=== PATIENT | female | born 1955 | race African-American/Black ===

== ENCOUNTER 2017-12-16 12:30 | Emergency (ER) | payer SELFPAY, BC | END 2017-12-16 19:52 | disposition left against medical advice (07) | LOC: E/R 12:30 | DX: Z53.21 Procedure and treatment not carried out due to patient leaving prior to being seen by health care provider (principal) ==

== ENCOUNTER 2018-02-08 12:44 | Inpatient (IN) | payer OTHER ==
[2018-02-08] MEDS: SOD CHLORIDE 0.9% 500 ML IV (22:00)
[2018-02-08 23:03] LABS: ADD MAN DIFF? NO
[2018-02-08 23:13] LABS: BASOPHILS % 0.7 % (0.0-2.0); EOSINOPHILS # 0.6 10^3/ul (0.0-0.5); HEMATOCRIT 28.1 % (37.0-47.0); HEMOGLOBIN 8.8 g/dl (12.0-16.0); LYMPHOCYTES # 1.4 10^3/ul (0.8-2.9); LYMPHOCYTES % 22.9 % (15.0-51.0); MEAN CORPUSCULAR HEMOGLOBIN 28.1 pg (29.0-33.0); MEAN CORPUSCULAR HGB CONC 31.3 g/dl (32.0-37.0); MEAN CORPUSCULAR VOLUME 89.8 fl (82.0-101.0); MONOCYTE # 0.6 10^3/ul (0.3-0.9); MONOCYTES % 9.7 % (0.0-11.0); NEUTROPHIL # 3.4 10^3/ul (1.6-7.5); NEUTROPHILS % 56.4 % (39.0-77.0); PLATELET COUNT 209 10^3/UL (140-415); RED BLOOD COUNT 3.13 10^6/ul (4.20-5.40); RED CELL DISTRIBUTION WIDTH 14.2 % (11.5-14.5)
[2018-02-08 23:13] LABS: WHITE BLOOD COUNT 6.1 10^3/ul (4.8-10.8)
[2018-02-08 23:26] LABS: ALANINE AMINOTRANSFERASE 21 IU/L (13-69); ALBUMIN 4.1 g/dl (3.3-4.9); ALBUMIN/GLOBULIN RATIO 1.24; ALKALINE PHOSPHATASE 114 IU/L (42-121); ANION GAP 17 (8-16); ASPARTATE AMINO TRANSFERASE 17 IU/L (15-46); BLOOD UREA NITROGEN 44 mg/dl (7-20); CALCIUM 9.4 mg/dl (8.4-10.2); CARBON DIOXIDE 20 mmol/L (21-31); CHLORIDE 112 mmol/L (97-110); CREATININE 1.72 mg/dl (0.44-1.00); GLUCOSE 83 mg/dl (70-220); LIPASE 69 U/L (23-300); POTASSIUM 3.4 mmol/L (3.5-5.1); SODIUM 146 mmol/L (135-144); TOTAL PROTEIN 7.4 g/dl (6.1-8.1)
[2018-02-08 23:28] LABS: INR 1.11; PARTIAL THROMBOPLASTIN TIME 23.4 Sec (25.0-35.0); PROTIME 14.5 Sec (11.9-14.9); PT RATIO 1.1
[2018-02-09] MEDS: ACETAMINOPHEN 325 MG TAB PO (00:18)
[2018-02-09] MEDS: SOD CHLORIDE 0.9% 1,000 ML IV ×2 (00:25→05:31)
[2018-02-09] MEDS: SOD CHLORIDE 0.9% 250 ML IV* ×3 (00:25→01:20)
[2018-02-09] MEDS ORDERED: BISACODYL (EC) 5 MG TAB PO (00:30)
[2018-02-09] MEDS ORDERED: DOCUSATE SODIUM 100 MG CAP PO (00:30)
[2018-02-09] MEDS ORDERED: NACL 0.9% 3 ML SYG IV (00:30)
[2018-02-09] MEDS ORDERED: ZOLPIDEM 5 MG TAB PO (00:30)
[2018-02-09 00:42] LABS: ADD UMIC NO; UR ASCORBIC ACID 20 mg/dL (NEGATIVE); UR BILIRUBIN (Dip) NEGATIVE (NEGATIVE); UR BLOOD (Dip) NEGATIVE (NEGATIVE); UR CLARITY CLEAR (CLEAR); UR COLOR YELLOW (YELLOW); UR GLUCOSE (Dip) NEGATIVE (NEGATIVE); UR KETONES (Dip) NEGATIVE (NEGATIVE); UR LEUKOCYTE ESTERASE (Dip) NEGATIVE Leu/ul (NEGATIVE); UR NITRITE (Dip) NEGATIVE (NEGATIVE); UR SPECIFIC GRAVITY (Dip) 1.019 (1.003-1.030); UR TOTAL PROTEIN (Dip) NEGATIVE (NEGATIVE); UR UROBILINOGEN (Dip) NEGATIVE (NEGATIVE)
[2018-02-09 01:14] LABS: HEMATOCRIT 24.4 % (37.0-47.0); HEMOGLOBIN 7.8 g/dl (12.0-16.0)
[2018-02-09] MEDS ORDERED: KETOROLAC 30 MG INJ IV (01:30)
[2018-02-09] MEDS: PANTOPRAZOLE IV 80 MG in SOD CHLORIDE 0.9% 100 ML IVPB (02:15)
[2018-02-09] MEDS: SUCRALFATE 1 GM TAB PO ×5 (02:26→21:44)
[2018-02-09] MEDS: PANTOPRAZOLE IV 80 MG in SOD CHLORIDE 0.9% 100 ML IV ×2 (02:26→11:00)
[2018-02-09] MEDS: DIAZEPAM 2 MG TAB PO ×3 (02:27→21:44)
[2018-02-09] MEDS: FUROSEMIDE 40 MG INJ IV (02:28)
[2018-02-09] MEDS ORDERED: PANTOPRAZOLE 40 MG INJ IV (06:00)
[2018-02-09 06:07] LABS: HEMATOCRIT 24.2 % (37.0-47.0); HEMOGLOBIN 7.7 g/dl (12.0-16.0)
[2018-02-09] MEDS ORDERED: hydrALAzine 20 MG INJ IV (07:30)
[2018-02-09 14:05] LABS: AHG CROSSMATCH 1 4
[2018-02-09] MEDS ORDERED: SOD FERRIC GLUC COMPLX 125 MG in SOD CHLORIDE 0.9% 100 ML IVPB (17:00)
[2018-02-09] MEDS: PANTOPRAZOLE 40 MG INJ IV (17:25)
[2018-02-09 17:55] LABS: IRON 47 ug/dl (35-150)
[2018-02-09 18:05] LABS: % IRON SATURATION 18 % SAT (22-52); TOTAL IRON BINDING CAPACITY 260 ug/dl (241-421)
[2018-02-09 18:30] LABS: FERRITIN 25.6 ng/ml (11.1-264.0)
[2018-02-09] MEDS: PROPOFOL 20 ML (18:57)
[2018-02-09] MEDS: LIDOCAINE 2% (SDV) 5 ML INJ (18:57)
[2018-02-09 21:01] LABS: HEMATOCRIT 27.2 % (37.0-47.0); HEMOGLOBIN 8.9 g/dl (12.0-16.0)
[2018-02-09] MEDS: ATORVASTATIN 10 MG TAB PO (21:44)
[2018-02-09] MEDS: PEG/ELECTROLYTES 4L BTL PO (23:09)
[2018-02-10] MEDS: PANTOPRAZOLE 40 MG INJ IV ×2 (05:33→21:04)
[2018-02-10] MEDS: SOD CHLORIDE 0.9% 1,000 ML IV (05:36)
[2018-02-10 06:05] LABS: ADD MAN DIFF? NO
[2018-02-10 06:09] LABS: WHITE BLOOD COUNT 7.1 10^3/ul (4.8-10.8)
[2018-02-10 06:09] LABS: BASOPHILS % 0.6 % (0.0-2.0); EOSINOPHILS # 0.8 10^3/ul (0.0-0.5); EOSINOPHILS % 10.9 % (0.0-7.0); HEMATOCRIT 23.1 % (37.0-47.0); HEMOGLOBIN 7.6 g/dl (12.0-16.0); LYMPHOCYTES # 1.1 10^3/ul (0.8-2.9); MEAN CORPUSCULAR HGB CONC 32.9 g/dl (32.0-37.0); MEAN CORPUSCULAR VOLUME 91.3 fl (82.0-101.0); MEAN PLATELET VOLUME 9.7 fl (7.4-10.4); MONOCYTE # 0.6 10^3/ul (0.3-0.9); MONOCYTES % 7.7 % (0.0-11.0); NEUTROPHIL # 4.6 10^3/ul (1.6-7.5); NEUTROPHILS % 64.4 % (39.0-77.0); PLATELET COUNT 180 10^3/UL (140-415); RED BLOOD COUNT 2.53 10^6/ul (4.20-5.40); RED CELL DISTRIBUTION WIDTH 14.1 % (11.5-14.5)
[2018-02-10 06:29] LABS: ALANINE AMINOTRANSFERASE 26 IU/L (13-69); ALBUMIN 3.4 g/dl (3.3-4.9); ALKALINE PHOSPHATASE 90 IU/L (42-121); ANION GAP 18 (8-16); ASPARTATE AMINO TRANSFERASE 18 IU/L (15-46); BLOOD UREA NITROGEN 42 mg/dl (7-20); CALCIUM 9.2 mg/dl (8.4-10.2); CARBON DIOXIDE 19 mmol/L (21-31); CHLORIDE 113 mmol/L (97-110); CHOL/HDL RATIO 3.1 RATIO; CHOLESTEROL 124 mg/dl (100-200); CREATININE 1.74 mg/dl (0.44-1.00); GLUCOSE 90 mg/dl (70-220); HDL CHOLESTEROL 40 mg/dl (35-98); LDL CHOLESTEROL,CALCULATED 52 mg/dl; POTASSIUM 3.8 mmol/L (3.5-5.1); SODIUM 146 mmol/L (135-144); TRIGLYCERIDES 159 mg/dl (0-149)
[2018-02-10] MEDS: SOD CHLORIDE 0.9% 250 ML IV* (08:18)
[2018-02-10] MEDS: DIAZEPAM 2 MG TAB PO ×2 (09:00→21:06)
[2018-02-10] MEDS: SUCRALFATE 1 GM TAB PO ×4 (09:00→21:04)
[2018-02-10] MEDS: ACETAMINOPHEN 325 MG TAB PO (10:38)
[2018-02-10] MEDS: FUROSEMIDE 20 MG INJ IV (15:07)
[2018-02-10] MEDS: FENTAnyl 50 MCG/ML VIAL ×2 (17:46)
[2018-02-10] MEDS: MIDAZOLAM 1 MG/ML 2 ML INJ (17:46)
[2018-02-10] MEDS ORDERED: VERAPAMIL (SR) 240 MG TAB PO (21:00)
[2018-02-10] MEDS: ATORVASTATIN 10 MG TAB PO (21:04)
[2018-02-10] MEDS: DEXTROSE 5%-0.45% NACL 1,000 ML IV (21:06)
[2018-02-10] MEDS: VERAPAMIL (SR) 240 MG TAB PO (22:18)
[2018-02-10 23:17] LABS: HEMATOCRIT 26.5 % (37.0-47.0); HEMOGLOBIN 8.9 g/dl (12.0-16.0)
[2018-02-11] MEDS: PEG/ELECTROLYTES 4L BTL PO (01:12)
[2018-02-11] MEDS: PANTOPRAZOLE 40 MG INJ IV ×2 (05:55→18:49)
[2018-02-11 06:23] LABS: ADD MAN DIFF? NO
[2018-02-11 06:29] LABS: BASOPHILS % 0.5 % (0.0-2.0); EOSINOPHILS # 0.9 10^3/ul (0.0-0.5); EOSINOPHILS % 10.7 % (0.0-7.0); HEMATOCRIT 25.7 % (37.0-47.0); HEMOGLOBIN 8.7 g/dl (12.0-16.0); LYMPHOCYTES # 1.7 10^3/ul (0.8-2.9); LYMPHOCYTES % 21.5 % (15.0-51.0); MEAN CORPUSCULAR HEMOGLOBIN 30.1 pg (29.0-33.0); MEAN CORPUSCULAR HGB CONC 33.9 g/dl (32.0-37.0); MEAN CORPUSCULAR VOLUME 88.9 fl (82.0-101.0); MEAN PLATELET VOLUME 10.1 fl (7.4-10.4); MONOCYTE # 0.6 10^3/ul (0.3-0.9); MONOCYTES % 7.8 % (0.0-11.0); NEUTROPHIL # 4.7 10^3/ul (1.6-7.5); PLATELET COUNT 190 10^3/UL (140-415); RED BLOOD COUNT 2.89 10^6/ul (4.20-5.40); RED CELL DISTRIBUTION WIDTH 14.1 % (11.5-14.5)
[2018-02-11 06:52] LABS: ANION GAP 16 (8-16); BLOOD UREA NITROGEN 30 mg/dl (7-20); CALCIUM 9.7 mg/dl (8.4-10.2); CARBON DIOXIDE 22 mmol/L (21-31); CHLORIDE 111 mmol/L (97-110); GLUCOSE 109 mg/dl (70-220); POTASSIUM 3.4 mmol/L (3.5-5.1); SODIUM 146 mmol/L (135-144)
[2018-02-11 07:08] LABS: PHOSPHORUS 3.1 mg/dl (2.5-4.9)
[2018-02-11] MEDS: VERAPAMIL (SR) 240 MG TAB PO (08:34)
[2018-02-11] MEDS: FUROSEMIDE 20 MG TAB PO (08:34)
[2018-02-11] MEDS: SUCRALFATE 1 GM TAB PO ×4 (08:34→22:14)
[2018-02-11] MEDS: DIAZEPAM 2 MG TAB PO ×2 (08:34→22:14)
[2018-02-11] MEDS: DEXTROSE 5%-0.45% NACL 1,000 ML IV ×2 (13:43→21:30)
[2018-02-11] MEDS: POTASSIUM CHLORIDE 100 ML IVPB (13:50)
[2018-02-11 15:16] LABS: HEMATOCRIT 26.4 % (37.0-47.0); HEMOGLOBIN 8.5 g/dl (12.0-16.0)
[2018-02-11 19:37] LABS: POTASSIUM 3.8 mmol/L (3.5-5.1)
[2018-02-11] MEDS: ATORVASTATIN 10 MG TAB PO (22:14)
[2018-02-11 23:11] LABS: HEMATOCRIT 24.9 % (37.0-47.0); HEMOGLOBIN 8.3 g/dl (12.0-16.0)
[2018-02-12] MEDS: ACETAMINOPHEN 325 MG TAB PO ×2 (02:58→10:29)
[2018-02-12] MEDS: DEXTROSE 5%-0.45% NACL 1,000 ML IV ×3 (05:35→18:24)
[2018-02-12] MEDS: PANTOPRAZOLE 40 MG INJ IV ×2 (05:35→18:22)
[2018-02-12 05:36] LABS: ADD MAN DIFF? NO
[2018-02-12 05:41] LABS: WHITE BLOOD COUNT 7.3 10^3/ul (4.8-10.8)
[2018-02-12 05:41] LABS: BASOPHILS % 0.4 % (0.0-2.0); EOSINOPHILS # 0.9 10^3/ul (0.0-0.5); EOSINOPHILS % 12.8 % (0.0-7.0); HEMATOCRIT 24.2 % (37.0-47.0); HEMOGLOBIN 8.1 g/dl (12.0-16.0); LYMPHOCYTES # 1.6 10^3/ul (0.8-2.9); MEAN CORPUSCULAR HEMOGLOBIN 30.1 pg (29.0-33.0); MEAN CORPUSCULAR HGB CONC 33.5 g/dl (32.0-37.0); MEAN PLATELET VOLUME 9.8 fl (7.4-10.4); MONOCYTE # 0.6 10^3/ul (0.3-0.9); MONOCYTES % 8.4 % (0.0-11.0); NEUTROPHIL # 4.1 10^3/ul (1.6-7.5); PLATELET COUNT 190 10^3/UL (140-415); RED BLOOD COUNT 2.69 10^6/ul (4.20-5.40); RED CELL DISTRIBUTION WIDTH 14.3 % (11.5-14.5)
[2018-02-12] MEDS: morphine 2 MG INJ IV (05:42)
[2018-02-12 05:56] LABS: MAGNESIUM 1.8 mg/dl (1.7-2.5)
[2018-02-12 05:56] LABS: PHOSPHORUS 3.6 mg/dl (2.5-4.9)
[2018-02-12 06:03] LABS: ANION GAP 17 (8-16); BLOOD UREA NITROGEN 17 mg/dl (7-20); CALCIUM 9.6 mg/dl (8.4-10.2); CARBON DIOXIDE 23 mmol/L (21-31); CHLORIDE 112 mmol/L (97-110); CREATININE 1.49 mg/dl (0.44-1.00); GLUCOSE 108 mg/dl (70-220); POTASSIUM 3.6 mmol/L (3.5-5.1); SODIUM 148 mmol/L (135-144)
[2018-02-12] MEDS: VERAPAMIL (SR) 240 MG TAB PO (10:22)
[2018-02-12] MEDS: SUCRALFATE 1 GM TAB PO ×4 (10:23→20:17)
[2018-02-12] MEDS: FUROSEMIDE 20 MG TAB PO (10:23)
[2018-02-12] MEDS: DIAZEPAM 2 MG TAB PO ×2 (10:24→20:17)
[2018-02-12] MEDS: PROPOFOL 60 ML (13:04)
[2018-02-12] MEDS: LIDOCAINE 2% (SDV) 5 ML INJ (13:04)
[2018-02-12] MEDS ORDERED: TOPIRAMATE 25 MG TAB PO (20:00)
[2018-02-12] MEDS: ATORVASTATIN 10 MG TAB PO (20:17)
[2018-02-12 22:36] LABS: AHG CROSSMATCH 1 2
[2018-02-13] MEDS: ZOLPIDEM 5 MG TAB PO (03:02)
[2018-02-13] MEDS: PANTOPRAZOLE 40 MG INJ IV (05:53)
[2018-02-13] MEDS: ONDANSETRON 4 MG INJ IV (09:29)
[2018-02-13] MEDS: FUROSEMIDE 20 MG TAB PO (09:29)
[2018-02-13] MEDS: DIAZEPAM 2 MG TAB PO (09:29)
[2018-02-13] MEDS: SUCRALFATE 1 GM TAB PO (09:29)
[2018-02-13] MEDS: VERAPAMIL (SR) 240 MG TAB PO (09:29)
[2018-02-13 10:00] LABS: ADD MAN DIFF? NO
[2018-02-13 10:05] LABS: WHITE BLOOD COUNT 7.4 10^3/ul (4.8-10.8)
[2018-02-13 10:05] LABS: BASOPHILS % 0.4 % (0.0-2.0); EOSINOPHILS # 1.2 10^3/ul (0.0-0.5); EOSINOPHILS % 15.5 % (0.0-7.0); HEMATOCRIT 27.8 % (37.0-47.0); HEMOGLOBIN 9.3 g/dl (12.0-16.0); LYMPHOCYTES # 1.4 10^3/ul (0.8-2.9); LYMPHOCYTES % 18.6 % (15.0-51.0); MEAN CORPUSCULAR HEMOGLOBIN 30.1 pg (29.0-33.0); MEAN CORPUSCULAR HGB CONC 33.5 g/dl (32.0-37.0); MONOCYTE # 0.6 10^3/ul (0.3-0.9); MONOCYTES % 8.6 % (0.0-11.0); NEUTROPHIL # 4.2 10^3/ul (1.6-7.5); NEUTROPHILS % 56.4 % (39.0-77.0); PLATELET COUNT 202 10^3/UL (140-415); RED BLOOD COUNT 3.09 10^6/ul (4.20-5.40); RED CELL DISTRIBUTION WIDTH 14.2 % (11.5-14.5)
[2018-02-13 10:23] LABS: ANION GAP 16 (8-16); BLOOD UREA NITROGEN 20 mg/dl (7-20); CALCIUM 9.3 mg/dl (8.4-10.2); CARBON DIOXIDE 22 mmol/L (21-31); CHLORIDE 112 mmol/L (97-110); CREATININE 1.56 mg/dl (0.44-1.00); GLUCOSE 96 mg/dl (70-220); POTASSIUM 3.9 mmol/L (3.5-5.1); SODIUM 146 mmol/L (135-144)
[2018-02-13] MEDS: HYDROCODONE/APAP (5/325) TAB PO (11:42)
== END 2018-02-13 14:35 | disposition home or self-care (01) | DRG 378 ==
LOC: E/R 12:44 → MS2 02-09 00:30
PROC: 30233N1 Transfusion of Nonautologous Red Blood Cells into Peripheral Vein, Percutaneous Approach (ICD-10-PCS; principal; 2018-02-09 18:00)
PROC: 0DB68ZX Excision of Stomach, Via Natural or Artificial Opening Endoscopic, Diagnostic (ICD-10-PCS; 2018-02-09 18:00)
PROC: 0DJD8ZZ Inspection of Lower Intestinal Tract, Via Natural or Artificial Opening Endoscopic (ICD-10-PCS; 2018-02-09 18:00)
PROC: 0W3P8ZZ Control Bleeding in Gastrointestinal Tract, Via Natural or Artificial Opening Endoscopic (ICD-10-PCS; 2018-02-09 18:00)
DX: K55.21 Angiodysplasia of colon with hemorrhage (principal); D62 Acute posthemorrhagic anemia; N18.3 Chronic kidney disease, stage 3 (moderate); E66.01 Morbid (severe) obesity due to excess calories; I12.9 Hypertensive chronic kidney disease with stage 1 through stage 4 chronic kidney disease, or unspecified chronic kidney disease; Z98.84 Bariatric surgery status; Z68.38 Body mass index [BMI] 38.0-38.9, adult; D64.89 Other specified anemias; E78.5 Hyperlipidemia, unspecified; F41.9 Anxiety disorder, unspecified; K64.4 Residual hemorrhoidal skin tags
CPT/HCPCS: 36430; 71045; 74176; 78278; 80048; 80053; 80061; 81003; 82728; 83540; 83690; 83735; 84100; 84132; 85014; 85018; 85025; 85610; 85730; 86850; 86870; 86900; 86901; 86902; 86920; 88305; 93005; J1940

== ENCOUNTER 2018-03-25 15:49 | Inpatient (IN) | payer OTHER ==
[2018-03-25] MEDS: FAMOTIDINE 20 MG INJ IV (16:49)
[2018-03-25] MEDS: SOD CHLORIDE 0.9% 1,000 ML IV ×2 (16:49→19:39)
[2018-03-25 17:15] LABS: ADD MAN DIFF? NO
[2018-03-25 17:24] LABS: WHITE BLOOD COUNT 6.3 10^3/ul (4.8-10.8)
[2018-03-25 17:24] LABS: BASOPHILS % 0.6 % (0.0-2.0); EOSINOPHILS # 0.8 10^3/ul (0.0-0.5); EOSINOPHILS % 12.6 % (0.0-7.0); HEMATOCRIT 30.3 % (37.0-47.0); HEMOGLOBIN 9.3 g/dl (12.0-16.0); LYMPHOCYTES # 0.9 10^3/ul (0.8-2.9); MEAN CORPUSCULAR HEMOGLOBIN 28.5 pg (29.0-33.0); MEAN CORPUSCULAR HGB CONC 30.7 g/dl (32.0-37.0); MEAN CORPUSCULAR VOLUME 92.9 fl (82.0-101.0); MONOCYTE # 0.5 10^3/ul (0.3-0.9); MONOCYTES % 8.6 % (0.0-11.0); NEUTROPHILS % 63.9 % (39.0-77.0); PLATELET COUNT 273 10^3/UL (140-415); RED BLOOD COUNT 3.26 10^6/ul (4.20-5.40); RED CELL DISTRIBUTION WIDTH 13.5 % (11.5-14.5)
[2018-03-25 17:39] LABS: INR 0.96; PROTIME 12.9 Sec (11.9-14.9)
[2018-03-25 17:43] LABS: ALANINE AMINOTRANSFERASE 23 IU/L (13-69); ALBUMIN/GLOBULIN RATIO 1.21; ALKALINE PHOSPHATASE 124 IU/L (42-121); ANION GAP 14 (8-16); ASPARTATE AMINO TRANSFERASE 19 IU/L (15-46); BLOOD UREA NITROGEN 22 mg/dl (7-20); CALCIUM 9.9 mg/dl (8.4-10.2); CARBON DIOXIDE 25 mmol/L (21-31); CHLORIDE 110 mmol/L (97-110); CREATININE 1.87 mg/dl (0.44-1.00); GLUCOSE 94 mg/dl (70-220); POTASSIUM 3.8 mmol/L (3.5-5.1); SODIUM 145 mmol/L (135-144); TOTAL PROTEIN 7.3 g/dl (6.1-8.1)
[2018-03-25 17:57] LABS: TROPONIN-I < 0.012 ng/ml (0.00-0.12)
[2018-03-25 18:23] LABS: HEMATOCRIT 29.1 % (37.0-47.0); HEMOGLOBIN 9.1 g/dl (12.0-16.0)
[2018-03-25] MEDS ORDERED: HYDROCODONE/APAP (5/325) TAB PO (19:00)
[2018-03-25] MEDS ORDERED: DOCUSATE SODIUM 100 MG CAP PO (19:00)
[2018-03-25] MEDS ORDERED: BISACODYL (EC) 5 MG TAB PO (19:00)
[2018-03-25] MEDS ORDERED: morphine 2 MG INJ IV (19:00)
[2018-03-25] MEDS ORDERED: NACL 0.9% 3 ML SYG IV (19:00)
[2018-03-25] MEDS ORDERED: ONDANSETRON 4 MG INJ IV (19:00)
[2018-03-25] MEDS ORDERED: ACETAMINOPHEN 325 MG TAB PO (19:00)
[2018-03-25] MEDS: TOPIRAMATE 25 MG TAB PO (21:00)
[2018-03-25] MEDS ORDERED: VERAPAMIL (SR) 240 MG TAB PO (21:00)
[2018-03-25 21:46] LABS: HEMATOCRIT 28.1 % (37.0-47.0); HEMOGLOBIN 8.8 g/dl (12.0-16.0)
[2018-03-25] MEDS: ATORVASTATIN 10 MG TAB PO (21:49)
[2018-03-25] MEDS: DIAZEPAM 2 MG TAB PO (21:49)
[2018-03-25] MEDS: traZODone 100 MG TAB PO (21:49)
[2018-03-25] MEDS: SUCRALFATE 1 GM TAB PO (21:49)
[2018-03-25] MEDS: ZOLPIDEM 5 MG TAB PO (23:28)
[2018-03-26 01:35] LABS: HEMATOCRIT 24.6 % (37.0-47.0); HEMOGLOBIN 7.9 g/dl (12.0-16.0)
[2018-03-26] MEDS: SOD CHLORIDE 0.9% IVPB (02:42)
[2018-03-26] MEDS: TRANEXAMIC ACID IVPB (02:42)
[2018-03-26] MEDS: SOD CHLORIDE 0.9% 250 ML IV* (02:51)
[2018-03-26] MEDS: SOD CHLORIDE 0.9% 1,000 ML IV ×3 (03:19→14:48)
[2018-03-26] MEDS: ACETAMINOPHEN 325 MG TAB PO ×2 (04:42→09:56)
[2018-03-26] MEDS: DIPHENHYDRAMINE 50 MG INJ IV (04:42)
[2018-03-26] MEDS: PANTOPRAZOLE 40 MG INJ IV (05:18)
[2018-03-26] MEDS: SOD CHLORIDE 0.9% 500 ML IV (05:24)
[2018-03-26 05:49] LABS: ADD MAN DIFF? NO
[2018-03-26 06:03] LABS: BASOPHILS % 0.7 % (0.0-2.0); EOSINOPHILS # 0.9 10^3/ul (0.0-0.5); EOSINOPHILS % 15.9 % (0.0-7.0); HEMATOCRIT 26.4 % (37.0-47.0); HEMOGLOBIN 8.3 g/dl (12.0-16.0); LYMPHOCYTES # 1.2 10^3/ul (0.8-2.9); LYMPHOCYTES % 20.2 % (15.0-51.0); MEAN CORPUSCULAR HEMOGLOBIN 28.6 pg (29.0-33.0); MEAN CORPUSCULAR HGB CONC 31.4 g/dl (32.0-37.0); MEAN PLATELET VOLUME 9.9 fl (7.4-10.4); MONOCYTE # 0.5 10^3/ul (0.3-0.9); MONOCYTES % 7.7 % (0.0-11.0); NEUTROPHIL # 3.2 10^3/ul (1.6-7.5); NEUTROPHILS % 55.3 % (39.0-77.0); PLATELET COUNT 247 10^3/UL (140-415); RED CELL DISTRIBUTION WIDTH 13.4 % (11.5-14.5)
[2018-03-26 06:03] LABS: WHITE BLOOD COUNT 5.9 10^3/ul (4.8-10.8)
[2018-03-26 06:16] LABS: ALANINE AMINOTRANSFERASE 15 IU/L (13-69); ALBUMIN 3.4 g/dl (3.3-4.9); ALBUMIN/GLOBULIN RATIO 1.17; ALKALINE PHOSPHATASE 103 IU/L (42-121); ANION GAP 11 (8-16); ASPARTATE AMINO TRANSFERASE 15 IU/L (15-46); BLOOD UREA NITROGEN 16 mg/dl (7-20); CALCIUM 9.6 mg/dl (8.4-10.2); CARBON DIOXIDE 25 mmol/L (21-31); CHLORIDE 113 mmol/L (97-110); GLUCOSE 96 mg/dl (70-220); POTASSIUM 3.6 mmol/L (3.5-5.1); SODIUM 145 mmol/L (135-144); TOTAL PROTEIN 6.3 g/dl (6.1-8.1)
[2018-03-26 06:18] LABS: INR 1.04; PROTIME 13.7 Sec (11.9-14.9); PT RATIO 1.1
[2018-03-26 06:19] LABS: PARTIAL THROMBOPLASTIN TIME 37.5 Sec (25.0-35.0)
[2018-03-26] MEDS: FUROSEMIDE 20 MG INJ IV (08:09)
[2018-03-26] MEDS: VERAPAMIL (SR) 240 MG TAB PO (08:10)
[2018-03-26] MEDS: SUCRALFATE 1 GM TAB PO (08:10)
[2018-03-26] MEDS: TOPIRAMATE 25 MG TAB PO (08:10)
[2018-03-26] MEDS: DIAZEPAM 2 MG TAB PO (08:12)
[2018-03-26 09:29] LABS: AHG CROSSMATCH 1 2
[2018-03-26 17:38] LABS: HEMATOCRIT 31.3 % (37.0-47.0)
== END 2018-03-26 20:35 | disposition short-term general hospital (02) | DRG 378 ==
LOC: E/R 15:49 → MS1 18:52
PROC: 30233N1 Transfusion of Nonautologous Red Blood Cells into Peripheral Vein, Percutaneous Approach (ICD-10-PCS; principal; 2018-03-26)
DX: K62.5 Hemorrhage of anus and rectum (principal); Z68.41 Body mass index [BMI] 40.0-44.9, adult; D62 Acute posthemorrhagic anemia; K55.20 Angiodysplasia of colon without hemorrhage; I12.9 Hypertensive chronic kidney disease with stage 1 through stage 4 chronic kidney disease, or unspecified chronic kidney disease; N18.3 Chronic kidney disease, stage 3 (moderate); F41.9 Anxiety disorder, unspecified; E78.5 Hyperlipidemia, unspecified; E66.01 Morbid (severe) obesity due to excess calories
CPT/HCPCS: 36415; 36430; 80053; 83735; 84484; 85014; 85018; 85025; 85610; 85730; 86850; 86870; 86900; 86901; 86902; 86920; 93005; 96374; 99285-25

== ENCOUNTER 2018-08-31 17:06 | Emergency (ER) | payer OTHER ==
[2018-08-31 20:41] LABS: ADD MAN DIFF? NO
[2018-08-31 20:52] LABS: WHITE BLOOD COUNT 5.6 10^3/ul (4.8-10.8)
[2018-08-31 20:52] LABS: BASOPHILS % 0.7 % (0.0-2.0); EOSINOPHILS # 0.7 10^3/ul (0.0-0.5); EOSINOPHILS % 12.8 % (0.0-7.0); HEMATOCRIT 32.4 % (37.0-47.0); HEMOGLOBIN 10.2 g/dl (12.0-16.0); LYMPHOCYTES # 1.8 10^3/ul (0.8-2.9); LYMPHOCYTES % 31.4 % (15.0-51.0); MEAN CORPUSCULAR HEMOGLOBIN 27.7 pg (29.0-33.0); MEAN CORPUSCULAR HGB CONC 31.5 g/dl (32.0-37.0); MEAN PLATELET VOLUME 10.8 fl (7.4-10.4); MONOCYTE # 0.4 10^3/ul (0.3-0.9); MONOCYTES % 7.3 % (0.0-11.0); NEUTROPHIL # 2.6 10^3/ul (1.6-7.5); NEUTROPHILS % 47.1 % (39.0-77.0); PLATELET COUNT 223 10^3/UL (140-415); RED BLOOD COUNT 3.68 10^6/ul (4.20-5.40); RED CELL DISTRIBUTION WIDTH 15.2 % (11.5-14.5)
[2018-08-31 20:54] LABS: POSITIVE DIFF @See below
[2018-08-31 21:09] LABS: INR 1.02; PROTIME 13.5 Sec (11.9-14.9); PT RATIO 1.1
[2018-08-31 21:10] LABS: ALANINE AMINOTRANSFERASE 20 IU/L (13-69); ALBUMIN/GLOBULIN RATIO 1.25; ALKALINE PHOSPHATASE 151 IU/L (42-121); ANION GAP 10 (8-16); ASPARTATE AMINO TRANSFERASE 25 IU/L (15-46); BILIRUBIN,INDIRECT 0.2 mg/dl (0-1.1); BILIRUBIN,TOTAL 0.2 mg/dl (0.2-1.3); BLOOD UREA NITROGEN 20 mg/dl (7-20); CALCIUM 9.6 mg/dl (8.4-10.2); CARBON DIOXIDE 22 mmol/L (21-31); CHLORIDE 112 mmol/L (97-110); GLUCOSE 89 mg/dl (70-220); PARTIAL THROMBOPLASTIN TIME 30.6 Sec (23.0-35.0); POTASSIUM 3.4 mmol/L (3.5-5.1); SODIUM 141 mmol/L (135-144); TOTAL PROTEIN 7.2 g/dl (6.1-8.1)
[2018-08-31 21:21] LABS: TROPONIN-I < 0.012 ng/ml (0.000-0.120)
[2018-08-31] MEDS: POTASSIUM CHLORIDE (SR) 20 MEQ TAB PO (22:07)
== END 2018-08-31 22:20 | disposition home or self-care (01) ==
LOC: E/R 22:20
DX: E87.6 Hypokalemia (principal); K62.5 Hemorrhage of anus and rectum; D64.9 Anemia, unspecified; I10 Essential (primary) hypertension
CPT/HCPCS: 36415; 80053; 84484; 85025; 85610; 85730; 86850; 86870; 86900; 86901; 93005; 99284-25

== ENCOUNTER 2018-11-24 18:36 | Inpatient (IN) | payer OTHER ==
[2018-11-25 01:57] LABS: ADD MAN DIFF? NO
[2018-11-25] MEDS: SOD CHLORIDE 0.9% 1,000 ML IV ×3 (02:03→13:45)
[2018-11-25 02:04] LABS: WHITE BLOOD COUNT 5.7 10^3/ul (4.8-10.8)
[2018-11-25 02:04] LABS: BASOPHILS % 0.5 % (0.0-2.0); EOSINOPHILS # 0.6 10^3/ul (0.0-0.5); HEMATOCRIT 23.3 % (37.0-47.0); HEMOGLOBIN 7.2 g/dl (12.0-16.0); LYMPHOCYTES # 1.2 10^3/ul (0.8-2.9); LYMPHOCYTES % 20.5 % (15.0-51.0); MEAN CORPUSCULAR HEMOGLOBIN 28.1 pg (29.0-33.0); MEAN CORPUSCULAR HGB CONC 30.9 g/dl (32.0-37.0); MEAN PLATELET VOLUME 9.8 fl (7.4-10.4); MONOCYTE # 0.7 10^3/ul (0.3-0.9); MONOCYTES % 11.4 % (0.0-11.0); NEUTROPHIL # 3.3 10^3/ul (1.6-7.5); NEUTROPHILS % 57.3 % (39.0-77.0); PLATELET COUNT 188 10^3/UL (140-415); RED BLOOD COUNT 2.56 10^6/ul (4.20-5.40); RED CELL DISTRIBUTION WIDTH 14.5 % (11.5-14.5); RETICULOCYTE COUNT # 0.063 X10^6 (0.020-0.110); RETICULOCYTE COUNT % 2.5 % (0.5-1.5); RETICULOCYTE RBC 2.56
[2018-11-25 02:21] LABS: ALANINE AMINOTRANSFERASE 16 IU/L (13-69); ALBUMIN 3.4 g/dl (3.3-4.9); ALBUMIN/GLOBULIN RATIO 1.17; ALKALINE PHOSPHATASE 111 IU/L (42-121); ANION GAP 10 (5-13); ASPARTATE AMINO TRANSFERASE 15 IU/L (15-46); BLOOD UREA NITROGEN 30 mg/dl (7-20); CALCIUM 9.6 mg/dl (8.4-10.2); CARBON DIOXIDE 22 mmol/L (21-31); CHLORIDE 108 mmol/L (97-110); CREATININE 1.86 mg/dl (0.44-1.00); Estimated GFR 33 mL/min (>60); GLUCOSE 104 mg/dl (70-220); SODIUM 140 mmol/L (135-144); TOTAL PROTEIN 6.3 g/dl (6.1-8.1)
[2018-11-25 02:31] LABS: LACTATE DEHYDROGENASE 363 IU/L (313-618)
[2018-11-25] MEDS: SOD CHLORIDE 0.9% 250 ML IV* (03:25)
[2018-11-25] MEDS ORDERED: ACETAMINOPHEN 325 MG TAB PO (03:30)
[2018-11-25] MEDS: ONDANSETRON 4 MG INJ IV (04:07)
[2018-11-25] MEDS: morphine 2 MG INJ IV (04:07)
[2018-11-25 04:28] LABS: IRON 24 ug/dl (35-150)
[2018-11-25 04:37] LABS: % IRON SATURATION 9 % SAT (22-52); TOTAL IRON BINDING CAPACITY 260 ug/dl (241-421)
[2018-11-25 05:34] LABS: FOLATE 13.5 ng/ml (2.8-20.0)
[2018-11-25] MEDS: PANTOPRAZOLE 40 MG INJ IV ×2 (05:42→17:31)
[2018-11-25] MEDS: ACETAMINOPHEN 325 MG TAB PO (05:42)
[2018-11-25 06:36] LABS: AHG CROSSMATCH 1 3
[2018-11-25] MEDS: METOPROLOL (XL) 50 MG TAB PO (08:36)
[2018-11-25] MEDS: FUROSEMIDE 40 MG INJ IV (10:45)
[2018-11-25] MEDS: PEG/ELECTROLYTES 4L BTL PO (14:00)
[2018-11-25] MEDS: morphine SULFATE/PF (2 MG/2 ML) SYG IV (15:16)
[2018-11-25 20:10] LABS: ADD MAN DIFF? NO
[2018-11-25 20:12] LABS: WHITE BLOOD COUNT 5.8 10^3/ul (4.8-10.8)
[2018-11-25 20:12] LABS: BASOPHILS % 0.5 % (0.0-2.0); EOSINOPHILS # 0.7 10^3/ul (0.0-0.5); EOSINOPHILS % 11.9 % (0.0-7.0); HEMATOCRIT 28.2 % (37.0-47.0); HEMOGLOBIN 9.1 g/dl (12.0-16.0); LYMPHOCYTES % 17.6 % (15.0-51.0); MEAN CORPUSCULAR HEMOGLOBIN 29.2 pg (29.0-33.0); MEAN CORPUSCULAR HGB CONC 32.3 g/dl (32.0-37.0); MEAN CORPUSCULAR VOLUME 90.4 fl (82.0-101.0); MONOCYTE # 0.7 10^3/ul (0.3-0.9); MONOCYTES % 11.2 % (0.0-11.0); NEUTROPHIL # 3.4 10^3/ul (1.6-7.5); NEUTROPHILS % 58.5 % (39.0-77.0); PLATELET COUNT 175 10^3/UL (140-415); RED BLOOD COUNT 3.12 10^6/ul (4.20-5.40); RED CELL DISTRIBUTION WIDTH 14.4 % (11.5-14.5)
[2018-11-25] MEDS ORDERED: VERAPAMIL (SR) 120 MG TAB PO (21:00)
[2018-11-25] MEDS ORDERED: VERAPAMIL HCL 300 MG PO (21:00)
[2018-11-25] MEDS ORDERED: VERAPAMIL (SR) 180 MG TAB PO (21:00)
[2018-11-25] MEDS ORDERED: ATORVASTATIN 10 MG TAB PO (21:00)
== END 2018-11-25 20:57 | disposition short-term general hospital (02) | DRG 379 ==
LOC: E/R 18:36 → 6WM 11-25 03:21
PROC: 30233N1 Transfusion of Nonautologous Red Blood Cells into Peripheral Vein, Percutaneous Approach (ICD-10-PCS; principal; 2018-11-25)
DX: K92.1 Melena (principal); I12.9 Hypertensive chronic kidney disease with stage 1 through stage 4 chronic kidney disease, or unspecified chronic kidney disease; N18.3 Chronic kidney disease, stage 3 (moderate); F41.9 Anxiety disorder, unspecified; E78.5 Hyperlipidemia, unspecified; D64.9 Anemia, unspecified
CPT/HCPCS: 36415; 36430; 80053; 82607; 82746; 83540; 83615; 85025; 85045; 86850; 86870; 86900; 86901; 86920; 93005; 99285-25